=== PATIENT | female | born 1990 | race African-American/Black ===

== ENCOUNTER 2018-06-28 23:38 | Emergency (ER) | payer SELFPAY ==
[2018-06-29] MEDS ORDERED: ACETAMINOPHEN 325 MG TABLET ONE (00:21)
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
[2018-06-29] MEDS ORDERED: IBUPROFEN 400 MG TAB ONE (00:53)
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
== END 2018-06-29 01:03 | disposition home or self-care (01) ==
LOC: ER 23:38
DX: S00.80XA Unspecified superficial injury of other part of head, initial encounter (principal); W50.0XXA Accidental hit or strike by another person, initial encounter; Y93.9 Activity, unspecified; Y92.89 Other specified places as the place of occurrence of the external cause
CPT/HCPCS: 70450; 70486; 76377; 99284